=== PATIENT | male | born 1955 | race Caucasian/White ===

== ENCOUNTER 2017-01-13 12:51 | Emergency (ER) ==
[2017-01-13] MEDS ORDERED: NS 1,000 ML IV ONE (13:19)
[2017-01-13] MEDS ORDERED: G.I. COCKTAIL PO ONE (13:19)
--- NOTE | 2017-01-13 13:31 | PROVIDER DOCUMENTATION ---
HPI-Cardiac General - General Chief Complaint: Palpitations Stated Complaint: CHEST PAIN,MARTINEZ,SHAKING,LOST VISION IN RT EYE Time Seen by Provider: 01/13/17 12:55 Source: patient, family Allergies/Adverse Reactions: Patient Allergies Allergy/AdvReac Type Severity Reaction Status Date / Time No Known Allergies Allergy Verified 01/14/16 00:29 Home Medications: Home Medication List Medication Instructions Recorded Confirmed Last Taken Type No Home Medications 01/13/17 01/13/17 Unknown History - History of Present Illness-Cardiac Nature of Presenting Problem: Pt is a 61 yom that presents to er with cc of chest pain since 10 am this morning and reports 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 Reports his main concern he can intermittently feel his heart skipping like it was hiccuping. Reports normally when he has cp he takes zantac and it relieves his pain. Pt reports upon arrival his chest pain and blurry vision has resolved. Takes daily aspirin. 1 cardiac stent in 2009. 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 Quality of Pain: reports: none Severity in ED: mild Onset/Duration: this morning Timing: gone now Palpitation Quality: irregular History of arrythmia: reports: none Recent use of:: reports: no stimulants Nitro Today/Relief: reports: no nitro taken today Aspirin Treatment Today: reports: 325 mg x 1, provided at home Similar Symptoms Previously?: Yes Recently Seen Here or By Another Healthcare Provider: No Review of Systems - Adult - REVIEW OF SYSTEMS - ADULT Constitutional: denies: chills, fever, fatique Eyes: reports: blurred vision. denies: decreased vision, double vision Ears, Nose, Mouth & Throat: denies: ear pain, sinus problem, nose pain, throat pain Cardiovascular: reports: chest pain, irregular heart rate. denies: orthopnea, syncope Respiratory: denies: cough, shortness of breath, wheezing Gastrointestinal: reports: no symptoms reported Genitourinary: reports: no symptoms reported Musculoskeletal: reports: no symptoms reported Integumentary: reports: no symptoms reported Neurological: reports: no symptoms reported Psychiatric: reports: no symptoms reported Endocrine: reports: no symptoms reported Hematologic/Lymphatic: reports: no symptoms reported Allergic/Immunologic: reports: no symptoms reported All Other Systems: Reviewed and Negative Past History - Adult - PAST MEDICAL HISTORY-ADULT Review of Records: reports: Nursing Assessment Review, Medications Reviewed Major Childhood Illnesses: reports: denies history Cardiovascular: reports: CAD, CHF, NC Respiratory: reports: denies history Gastrointestinal: reports: GERD - PRIOR SURGERIES/PROCEDURES Surgical/Procedure History: reports: other (heart stents) - IMMUNIZATION STATUS Childhood Immunizations: See Nurse Assessment Flu Vaccine: See Nurse Assessment - FAMILY HISTORY Family History: reviewed, not pertinent - SOCIAL HISTORY Smoking: denies Substance Use: alcohol Physical Exam-General - PHYSICAL EXAM-ADULT Initial Vital Signs Reviewed: Yes - CONSTITUTIONAL General Appearance: appears well, alert, no apparent distress - EYES Eyes: PERRL/EOMI, pink conjunctivae - HEAD, EARS, NOSE, MOUTH & THROAT HENMT: normocephalic/atraumatic, moist mucous membranes, normal ENT inspection, TMs normal, pharynx normal - RESPIRATORY Respiratory: chest non-tender, lungs clear, normal breath sounds, no pleuratic chest pain, no respiratory distress, no accessory muscle use - CARDIOVASCULAR Cardiovascular: regular rate, rhythm, no edema, no gallop, no JVD, no murmur - GASTROINTESTINAL (ABDOMEN) Abdominal Exam: normal bowel sounds, non tender, soft, no organomegaly, no pulsatile mass - MUSCULOSKELETAL Back Exam: normal inspection, no CVA tenderness, no vertebral tenderness Extremity: normal range of motion, non-tender, normal gait, normal inspection, no pedal edema, no calf tenderness, normal capillary refill - SKIN Integumentary: normal color, normal turgor, warm/dry - PSYCHIATRIC Psych/Mental Status: normal mood/affect, normal thought content, normal thought process, oriented x 3 Progress - PLAN OF CARE/RESULTS Progress/Plan/Lab Results: Orders Category Date Time Status Cardiac Monitoring DIRECTED Care 01/13/17 13:17 Active Finger Stick Blood Sugar (ED) DIRECTED Care 01/13/17 13:17 Active Saline Loc NOW Care 01/13/17 13:17 Active Visual Acuity DIRECTED Care 01/13/17 13:19 Active CHEST-PORTABLE [RAD] Stat Exams 01/13/17 13:18 Taken HEAD W/O CONTRAST [CT] Stat Exams 01/13/17 13:18 Ordered ALCOHOL BLOOD Stat Lab 01/13/17 13:26 Ordered CBC WITH ELECTRONIC DIFF [HEME] Stat Lab 01/13/17 13:26 Ordered CK PROFILE [SP CHEM] Stat Lab 01/13/17 13:26 Ordered COMPREHENSIVE METABOLIC PANEL [CHEM] Stat Lab 01/13/17 13:26 Ordered D-DIMER [CHEM] Stat Lab 01/13/17 13:27 Ordered PRO B-NATRIURETIC PEPTIDE Stat Lab 01/13/17 13:27 Ordered PROTIME WITH INR [COAG] Stat Lab 01/13/17 13:26 Ordered PTT [COAG] Stat Lab 01/13/17 13:26 Ordered TROPONIN T Stat Lab 01/13/17 13:26 Ordered URINALYSIS W/POSS RFLX CULT [URINALYSIS] Stat Lab 01/13/17 13:17 Uncollected URINE DRUG SCREEN Stat Lab 01/13/17 13:17 Uncollected 0.9% Sodium Chloride Inj [Ns] 1,000 ml Med 01/13/17 13:19 Active IV 999 mls/hr Lido/Mojica Alk/Al&mg Hydrox [G.i. Cocktail] Med 01/13/17 13:19 Discontinued 30 ml PO NOW ONE Pulse Oximetry Stat Oth 01/13/17 13:17 Active EKG [EKG] Stat Ther 01/13/17 12:57 Ordered Vital Signs - 24 hr 01/13/17 13:10 Temperature 97.5 F L Pulse Rate 70 Respiratory 18 Rate Blood Pressure 159/87 O2 Sat by Pulse 100 Oximetry Laboratory Tests 01/13/17 01/13/17 01/13/17 13:20 13:20 13:20 WBC 4.86 RBC 4.58 L Hgb 13.1 L Hct 39.6 L MCV 86.5 MCH 28.6 MCHC 33.1 RDW Std Deviation 14.0 Plt Count 243 MPV 10.0 Neut % (Auto) 50.0 Lymph % (Auto) 34.8 [place] % (Auto) 12.3 H Eos % (Auto) 2.3 Baso % (Auto) 0.6 Neut # (Auto) 2.43 Lymph # (Auto) 1.69 [place] # (Auto) 0.60 H Eos # (Auto) 0.11 Baso # (Auto) 0.03 Sodium 133 L Potassium 4.5 Chloride 98 Carbon Dioxide 24 L Anion Gap 11 BUN 10 Creatinine 1.0 Estimated GFR/1.73 m2 > 60 BUN/Creatinine Ratio 10 Glucose 102 Calculated Osmolality 266 Calcium 8.6 L Total Bilirubin 0.34 AST 18 ALT 13 Alkaline Phosphatase 90 Creatine Kinase 103 Troponin T < 0.010 Total Protein 7.1 Albumin 4.3 Globulin 2.8 Albumin/Globulin Ratio 1.5 Urine Source Urine Color Urine Turbidity Urine pH Ur Specific [place] Urine Protein Ur Glucose (Stick) Ur Ketones (Stick) Urine Blood Urine Nitrite Urine Bilirubin Urobilinogen Dipstick Urine Leukocytes Urine WBC (Auto) Urine RBC (Auto) U Epithel Cells (Auto) Urine Bacteria (Auto) 01/13/17 13:41 WBC RBC Hgb Hct MCV MCH MCHC RDW Std Deviation Plt Count MPV Neut % (Auto) Lymph % (Auto) [place] % (Auto) Eos % (Auto) Baso % (Auto) Neut # (Auto) Lymph # (Auto) [place] # (Auto) Eos # (Auto) Baso # (Auto) Sodium Potassium Chloride Carbon Dioxide Anion Gap BUN Creatinine Estimated GFR/1.73 m2 BUN/Creatinine Ratio Glucose Calculated Osmolality Calcium Total Bilirubin AST ALT Alkaline Phosphatase Creatine Kinase Troponin T Total Protein Albumin Globulin Albumin/Globulin Ratio Urine Source CLEAN CATCH Urine Color STRAW Urine Turbidity CLEAR Urine pH 6.5 Ur Specific [place] 1.004 Urine Protein NEGATIVE Ur Glucose (Stick) NEGATIVE Ur Ketones (Stick) NEGATIVE Urine Blood NEGATIVE Urine Nitrite NEGATIVE Urine Bilirubin NEGATIVE Urobilinogen Dipstick NORMAL Urine Leukocytes NEGATIVE Urine WBC (Auto) <10 Urine RBC (Auto) <10 U Epithel Cells (Auto) <10 Urine Bacteria (Auto) NEGATIVE Laboratory Tests 01/13/17 01/13/17 01/13/17 13:20 13:20 13:20 WBC 4.86 RBC 4.58 L Hgb 13.1 L Hct 39.6 L MCV 86.5 MCH 28.6 MCHC 33.1 RDW Std Deviation 14.0 Plt Count 243 MPV 10.0 Neut % (Auto) 50.0 Lymph % (Auto) 34.8 [place] % (Auto) 12.3 H Eos % (Auto) 2.3 Baso % (Auto) 0.6 Neut # (Auto) 2.43 Lymph # (Auto) 1.69 [place] # (Auto) 0.60 H Eos # (Auto) 0.11 Baso # (Auto) 0.03 PT INR PTT (Actin FS) D-Dimer Sodium 133 L Potassium 4.5 Chloride 98 Carbon Dioxide 24 L Anion Gap 11 BUN 10 Creatinine 1.0 Estimated GFR/1.73 m2 > 60 BUN/Creatinine Ratio 10 Glucose 102 Calculated Osmolality 266 Calcium 8.6 L Total Bilirubin 0.34 AST 18 ALT 13 Alkaline Phosphatase 90 Creatine Kinase 103 Troponin T Ept-D-Wwadvfxwoln Pept Total Protein 7.1 Albumin 4.3 Globulin 2.8 Albumin/Globulin Ratio 1.5 Urine Source Urine Color Urine Turbidity Urine pH Ur Specific [place] Urine Protein Ur Glucose (Stick) Ur Ketones (Stick) Urine Blood Urine Nitrite Urine Bilirubin Urobilinogen Dipstick Urine Leukocytes Urine WBC (Auto) Urine RBC (Auto) U Epithel Cells (Auto) Urine Bacteria (Auto) Urine Opiates Screen Ur Oxycodone Screen Ur Methadone, Qual Ur Barbiturates Screen Ur Phencyclidine Scrn Ur Amphetamines Screen U Benzodiazepines Scrn Urine Cocaine Screen U Cannabinoids Screen Plasma/Serum Ethyl Alc 01/13/17 01/13/17 01/13/17 13:20 13:20 13:20 WBC RBC Hgb Hct MCV MCH MCHC RDW Std Deviation Plt Count MPV Neut % (Auto) Lymph % (Auto) [place] % (Auto) Eos % (Auto) Baso % (Auto) Neut # (Auto) Lymph # (Auto) [place] # (Auto) Eos # (Auto) Baso # (Auto) PT 10.4 INR 1.02 PTT (Actin FS) 23.1 D-Dimer 0.29 Sodium Potassium Chloride Carbon Dioxide Anion Gap BUN Creatinine Estimated GFR/1.73 m2 BUN/Creatinine Ratio Glucose Calculated Osmolality Calcium Total Bilirubin AST ALT Alkaline Phosphatase Creatine Kinase Troponin T < 0.010 Rng-E-Ykyquyixdjo Pept Total Protein Albumin Globulin Albumin/Globulin Ratio Urine Source Urine Color Urine Turbidity Urine pH Ur Specific [place] Urine Protein Ur Glucose (Stick) Ur Ketones (Stick) Urine Blood Urine Nitrite Urine Bilirubin Urobilinogen Dipstick Urine Leukocytes Urine WBC (Auto) Urine RBC (Auto) U Epithel Cells (Auto) Urine Bacteria (Auto) Urine Opiates Screen Ur Oxycodone Screen Ur Methadone, Qual Ur Barbiturates Screen Ur Phencyclidine Scrn Ur Amphetamines Screen U Benzodiazepines Scrn Urine Cocaine Screen U Cannabinoids Screen Plasma/Serum Ethyl Alc 01/13/17 01/13/17 01/13/17 13:20 13:41 13:41 WBC RBC Hgb Hct MCV MCH MCHC RDW Std Deviation Plt Count MPV Neut % (Auto) Lymph % (Auto) [place] % (Auto) Eos % (Auto) Baso % (Auto) Neut # (Auto) Lymph # (Auto) [place] # (Auto) Eos # (Auto) Baso # (Auto) PT INR PTT (Actin FS) D-Dimer Sodium Potassium Chloride Carbon Dioxide Anion Gap BUN Creatinine Estimated GFR/1.73 m2 BUN/Creatinine Ratio Glucose Calculated Osmolality Calcium Total Bilirubin AST ALT Alkaline Phosphatase Creatine Kinase Troponin T Scs-D-Zssdokvfmtd Pept 281 H Total Protein Albumin Globulin Albumin/Globulin Ratio Urine Source CLEAN CATCH Urine Color STRAW Urine Turbidity CLEAR Urine pH 6.5 Ur Specific [place] 1.004 Urine Protein NEGATIVE Ur Glucose (Stick) NEGATIVE Ur Ketones (Stick) NEGATIVE Urine Blood NEGATIVE Urine Nitrite NEGATIVE Urine Bilirubin NEGATIVE Urobilinogen Dipstick NORMAL Urine Leukocytes NEGATIVE Urine WBC (Auto) <10 Urine RBC (Auto) <10 U Epithel Cells (Auto) <10 Urine Bacteria (Auto) NEGATIVE Urine Opiates Screen NONE DETECTED Ur Oxycodone Screen NONE DETECTED Ur Methadone, Qual NONE DETECTED Ur Barbiturates Screen NONE DETECTED Ur Phencyclidine Scrn NONE DETECTED Ur Amphetamines Screen NONE DETECTED U Benzodiazepines Scrn NONE DETECTED Urine Cocaine Screen NONE DETECTED U Cannabinoids Screen NONE DETECTED Plasma/Serum Ethyl Alc Laboratory Tests 01/13/17 01/13/17 01/13/17 13:20 13:20 13:20 WBC 4.86 RBC 4.58 L Hgb 13.1 L Hct 39.6 L MCV 86.5 MCH 28.6 MCHC 33.1 RDW Std Deviation 14.0 Plt Count 243 MPV 10.0 Neut % (Auto) 50.0 Lymph % (Auto) 34.8 [place] % (Auto) 12.3 H Eos % (Auto) 2.3 Baso % (Auto) 0.6 Neut # (Auto) 2.43 Lymph # (Auto) 1.69 [place] # (Auto) 0.60 H Eos # (Auto) 0.11 Baso # (Auto) 0.03 PT INR PTT (Actin FS) D-Dimer Sodium 133 L Potassium 4.5 Chloride 98 Carbon Dioxide 24 L Anion Gap 11 BUN 10 Creatinine 1.0 Estimated GFR/1.73 m2 > 60 BUN/Creatinine Ratio 10 Glucose 102 Calculated Osmolality 266 Calcium 8.6 L Total Bilirubin 0.34 AST 18 ALT 13 Alkaline Phosphatase 90 Creatine Kinase 103 Troponin T Gbx-X-Alsxrumeoxg Pept Total Protein 7.1 Albumin 4.3 Globulin 2.8 Albumin/Globulin Ratio 1.5 Urine Source Urine Color Urine Turbidity Urine pH Ur Specific [place] Urine Protein Ur Glucose (Stick) Ur Ketones (Stick) Urine Blood Urine Nitrite Urine Bilirubin Urobilinogen Dipstick Urine Leukocytes Urine WBC (Auto) Urine RBC (Auto) U Epithel Cells (Auto) Urine Bacteria (Auto) Urine Opiates Screen Ur Oxycodone Screen Ur Methadone, Qual Ur Barbiturates Screen Ur Phencyclidine Scrn Ur Amphetamines Screen U Benzodiazepines Scrn Urine Cocaine Screen U Cannabinoids Screen Plasma/Serum Ethyl Alc 01/13/17 01/13/17 01/13/17 13:20 13:20 13:20 WBC RBC Hgb Hct MCV MCH MCHC RDW Std Deviation Plt Count MPV Neut % (Auto) Lymph % (Auto) [place] % (Auto) Eos % (Auto) Baso % (Auto) Neut # (Auto) Lymph # (Auto) [place] # (Auto) Eos # (Auto) Baso # (Auto) PT 10.4 INR 1.02 PTT (Actin FS) 23.1 D-Dimer 0.29 Sodium Potassium Chloride Carbon Dioxide Anion Gap BUN Creatinine Estimated GFR/1.73 m2 BUN/Creatinine Ratio Glucose Calculated Osmolality Calcium Total Bilirubin AST ALT Alkaline Phosphatase Creatine Kinase Troponin T < 0.010 Pag-P-Koodwajswcc Pept Total Protein Albumin Globulin Albumin/Globulin Ratio Urine Source Urine Color Urine Turbidity Urine pH Ur Specific [place] Urine Protein Ur Glucose (Stick) Ur Ketones (Stick) Urine Blood Urine Nitrite Urine Bilirubin Urobilinogen Dipstick Urine Leukocytes Urine WBC (Auto) Urine RBC (Auto) U Epithel Cells (Auto) Urine Bacteria (Auto) Urine Opiates Screen Ur Oxycodone Screen Ur Methadone, Qual Ur Barbiturates Screen Ur Phencyclidine Scrn Ur Amphetamines Screen U Benzodiazepines Scrn Urine Cocaine Screen U Cannabinoids Screen Plasma/Serum Ethyl Alc 01/13/17 01/13/17 01/13/17 13:20 13:41 13:41 WBC RBC Hgb Hct MCV MCH MCHC RDW Std Deviation Plt Count MPV Neut % (Auto) Lymph % (Auto) [place] % (Auto) Eos % (Auto) Baso % (Auto) Neut # (Auto) Lymph # (Auto) [place] # (Auto) Eos # (Auto) Baso # (Auto) PT INR PTT (Actin FS) D-Dimer Sodium Potassium Chloride Carbon Dioxide Anion Gap BUN Creatinine Estimated GFR/1.73 m2 BUN/Creatinine Ratio Glucose Calculated Osmolality Calcium Total Bilirubin AST ALT Alkaline Phosphatase Creatine Kinase Troponin T [id number]-M-Nbntxutuucm Pept 281 H Total Protein Albumin Globulin Albumin/Globulin Ratio Urine Source CLEAN CATCH Urine Color STRAW Urine Turbidity CLEAR Urine pH 6.5 Ur Specific [place] 1.004 Urine Protein NEGATIVE Ur Glucose (Stick) NEGATIVE Ur Ketones (Stick) NEGATIVE Urine Blood NEGATIVE Urine Nitrite NEGATIVE Urine Bilirubin NEGATIVE Urobilinogen Dipstick NORMAL Urine Leukocytes NEGATIVE Urine WBC (Auto) <10 Urine RBC (Auto) <10 U Epithel Cells (Auto) <10 Urine Bacteria (Auto) NEGATIVE Urine Opiates Screen NONE DETECTED Ur Oxycodone Screen NONE DETECTED Ur Methadone, Qual NONE DETECTED Ur Barbiturates Screen NONE DETECTED Ur Phencyclidine Scrn NONE DETECTED Ur Amphetamines Screen NONE DETECTED U Benzodiazepines Scrn NONE DETECTED Urine Cocaine Screen NONE DETECTED U Cannabinoids Screen NONE DETECTED Plasma/Serum Ethyl Alc 01/13/17 01/13/17 16:05 16:05 WBC RBC Hgb Hct MCV MCH MCHC RDW Std Deviation Plt Count MPV Neut % (Auto) Lymph % (Auto) [place] % (Auto) Eos % (Auto) Baso % (Auto) Neut # (Auto) Lymph # (Auto) [place] # (Auto) Eos # (Auto) Baso # (Auto) PT INR PTT (Actin FS) D-Dimer Sodium Potassium Chloride Carbon Dioxide Anion Gap BUN Creatinine Estimated GFR/1.73 m2 BUN/Creatinine Ratio Glucose Calculated Osmolality Calcium Total Bilirubin AST ALT Alkaline Phosphatase Creatine Kinase 98 Troponin T < 0.010 Noh-Q-Pwwrdgkvtab Pept Total Protein Albumin Globulin Albumin/Globulin Ratio Urine Source Urine Color Urine Turbidity Urine pH Ur Specific [place] Urine Protein Ur Glucose (Stick) Ur Ketones (Stick) Urine Blood Urine Nitrite Urine Bilirubin Urobilinogen Dipstick Urine Leukocytes Urine WBC (Auto) Urine RBC (Auto) U Epithel Cells (Auto) Urine Bacteria (Auto) Urine Opiates Screen Ur Oxycodone Screen Ur Methadone, Qual Ur Barbiturates Screen Ur Phencyclidine Scrn Ur Amphetamines Screen U Benzodiazepines Scrn Urine Cocaine Screen U Cannabinoids Screen Plasma/Serum Ethyl Alc Pt refused admission and reports he will follow up with . Pt denies being in any pain. - EKG 1 Time of EKG reading by physician:: 13:01 EKG Read and Signed by:: Fredi Reis EKG Interpretation (*Must complete 3 of following elements*): Abnormal (septal infarct age undetermined; T wave abnormality consider anterolateral ischemia) Rate: 67 Rhythm: nsr [place]: normal QRS: normal 2 Time of EKG reading by physician:: 15:56 EKG Read and Signed by:: Fredi Reis EKG Interpretation (*Must complete 3 of following elements*): Abnormal (cannot rule out septal infarct age undetermined) Rate: 54 Rhythm: sinus lesley [place]: left QRS: LVH (with repolarization abnormality) [place] Interval: normal - XRAY 1 XRAY: Bilateral XRAY Study: Chest Impression: Normal XRAY Interpretation: nad - CT/MRI 1 CT Study: Head Impression: Normal CT Results: nad Departure - Departure Time of Disposition Order: 16:44 DIAGNOSIS: Atypical chest pain Disposition: HOME 01 Certified Medical Emergency: Emergent Condition: Stable Additional Instructions: follow up with pcp and hatchery worker ED Follow Up Instructions: You have been treated by a care provider in the Emergency Department. These instructions are being provided to you so you can have an understanding of how to care for yourself upon discharge. Upon discharge from the Emergency Department, you are responsible for making arrangements for follow-up care by a physician of your choice. Take all prescribed medications as directed. Return to the Emergency Department immediately for any new or worsening symptoms. You may call the Physician Referral phone number at [phone] to obtain a list of Physicians who are taking new patients. Referrals: None,PCP [Primary Care Provider] - Attestation - Scribe Verification/Attestation Scribe:: Vladimir Epperson Acting as Scribe for:: Fredi Reis Scribe documention review:: This chart was documented by a scribe and accurately reflects the service the provider performed and the decisions made by the provider. Physician Attestation - Physician Attestation I, the provider, attest to the following statement:: Fredi Reis Physician documentation Attestation:: This documentation recorded by the scribe accurately reflects the service I personally performed and the decisions made by me.
[2017-01-13 13:35] LABS: MANUAL DIFF NEEDED? NO
[2017-01-13 13:48] LABS: BASO% 0.6 % (0.0-0.8); EOS# 0.11 X1000 (0.0-0.7); EOS% 2.3 % (0.0-10.0); HEMATOCRIT 39.6 % (42.0-52.0); HEMOGLOBIN 13.1 g/dL (14.0-18.0); LYMPH# 1.69 X1000 (1.2-3.4); LYMPH% 34.8 % (20.5-51.1); MCH 28.6 PG (27-31); MCHC 33.1 g/dL (33-37); MCV 86.5 FL (81-99); MONO% 12.3 % (1.7-9.3); PLT 243 X1000 (130-400); RBC 4.58 XMIL (4.7-6.1)
[2017-01-13 13:49] LABS: URINE CULTURE NEEDED? NO; URINE MICRO REVIEW NEEDED? NO; URINE SOURCE CLEAN CATCH
[2017-01-13 13:54] LABS: AGAP 11; ALBUMIN 4.3 g/dL (3.5-5.0); ALKALINE PHOSPHATASE 90 U/L (32-122); BUN 10 mg/dL (8-22); CALCIUM 8.6 mg/dL (8.8-10.2); CHLORIDE 98 mmol/L (98-107); CK PROFILE 103 U/L (24-204); COSMO 266; GOT 18 U/L (10-34); GPT 13 U/L (10-44); POTASSIUM 4.5 mmol/L (3.5-5.1); SODIUM 133 mmol/L (136-145); TCO2 24 mmol/L (25-35); TOTAL BILIRUBIN 0.34 mg/dL (0.20-1.00); TOTAL PROTEIN 7.1 g/dL (6.3-8.3)
[2017-01-13 13:59] LABS: BILIRUBIN URINE NEGATIVE (NEGATIVE); BLOOD URINE NEGATIVE (NEGATIVE); COLOR STRAW; GLUCOSE URINE NEGATIVE (NEGATIVE); LEUKOCYTES URINE NEGATIVE (NEGATIVE); NITRITE URINE NEGATIVE (NEGATIVE); PH URINE 6.5; PROTEIN URINE NEGATIVE (NEGATIVE); SP GRAVITY URINE 1.004; TURBIDITY URINE CLEAR (CLEAR); UR EPITHELIAL CELLS <10 /HPF (<10); URINE BACTERIA NEGATIVE /HPF; URINE RBC <10 /HPF (<10); URINE WBC <10 /HPF (<10); UROBILINOGEN URINE NORMAL (NORMAL)
--- NOTE | 2017-01-13 14:07 | Diag Imaging Result Document ---
PROCEDURE NAME: HEAD W/O CONTRAST - 01/13/[address]: A CT dose reduction protocol was used. COMPARISON: None. FINDINGS: The ventricles and sulci are normal in size and contour. There is no mass, hemorrhage, or evidence of acute ischemia. The bony calvaria is intact. The visualized paranasal sinuses and mastoid air cells are clear. IMPRESSION: Negative head CT. MTDD
[2017-01-13 14:20] LABS: UR AMPHETAMINES QUAL NONE DETECTED (NONE DETECT); UR BARBITUATES QUAL NONE DETECTED (NONE DETECT); UR BENZODIAZEPIN QUAL NONE DETECTED (NONE DETECT); UR CANNABINOIDS QUAL NONE DETECTED (NONE DETECT); UR COCAINE QUAL NONE DETECTED (NONE DETECT); UR METHADONE QUAL NONE DETECTED (NONE DETECT); UR OPIATES QUAL NONE DETECTED (NONE DETECT); UR OXYCODONE QUAL NONE DETECTED (NONE DETECT); UR PCP QUAL NONE DETECTED (NONE DETECT)
[2017-01-13 14:23] LABS: INR 1.02; PROTIME 10.4 Seconds (9.2-11.7); PTT 23.1 Seconds (22.0-36.0)
--- NOTE | 2017-01-13 14:25 | EKG Report ---
Test Performed on : 01/13/2017 1:01:22 PM Test Reason : CP Blood Pressure : / mmHG Vent. Rate : 067 BPM Atrial Rate : 067 BPM P-R Int : 194 ms QRS Dur : 096 ms QT Int : 410 ms P-R-T Axes : 055 -28 085 degrees QTc Int : 433 ms Normal sinus rhythm. Septal infarct (cited on or before 17-FEB-2010) T wave abnormality, consider anterolateral ischemia Abnormal ECG When compared with ECG of 13-JAN-2017 13:00, (Unconfirmed) No significant change was found Unconfirmed Result
--- NOTE | 2017-01-13 14:44 | Diag Imaging Result Document ---
PROCEDURE NAME: CHEST-PORTABLE - 01/13/2017 SINGLE FRONTAL RADIOGRAPH OF THE CHEST: COMPARISON: 01/13/2016. FINDINGS: The lungs are grossly clear. There is no discrete pleural fluid collection or evidence of pneumothorax. The cardiomediastinal silhouette and upper airway are grossly unremarkable. IMPRESSION: No evidence of acute chest pathology.
[2017-01-13 16:32] VITALS: BP 138/86
--- NOTE | 2017-01-14 05:39 | EKG Report ---
Test Performed on : 01/13/2017 3:56:31 PM Test Reason : NO Order in What's Trending Blood Pressure : / mmHG Vent. Rate : 054 BPM Atrial Rate : 054 BPM P-R Int : 204 ms QRS Dur : 096 ms QT Int : 448 ms P-R-T Axes : 045 -34 082 degrees QTc Int : 424 ms Sinus bradycardia. Left axis deviation Left ventricular hypertrophy with repolarization abnormality Cannot rule out Septal infarct (cited on or before 17-FEB-2010) Abnormal ECG When compared with ECG of 13-JAN-2017 13:01, (Unconfirmed) No significant change was found Unconfirmed Result
== END 2017-01-13 17:41 | disposition home or self-care (01) ==
LOC: ED 12:51
DX: R07.89 Other chest pain (principal); I49.9 Cardiac arrhythmia, unspecified; H53.8 Other visual disturbances; I25.10 Atherosclerotic heart disease of native coronary artery without angina pectoris; I25.2 Old myocardial infarction; R94.31 Abnormal electrocardiogram [ECG] [EKG]; Z95.5 Presence of coronary angioplasty implant and graft
CPT/HCPCS: 70450; 71010; 80053; 81001; 82550; 83880; 84484; 85025; 85379; 85610; 85730; 93005; G0480; J7030; 80320; 80324; 80345; 80346; 80349; 80353; 80358; 80361; 80365; 83992